=== PATIENT | female | born 1985 | race African-American/Black ===

== ENCOUNTER 2019-09-02 23:47 | Emergency (ER) | payer MEDICAID ==
[~2019-09-02] VITALS: Ht 165.1 cm; Wt 60.8 kg
[2019-09-03 01:57] VITALS: BP 145/70
[2019-09-03] MEDS ORDERED: methylPREDNISolone SOD SUCC 125 MG/2 ML VL IM ONE (02:00)
[2019-09-03] MEDS ORDERED: diphenhdrAMINE HCL 50 MG/1 ML VL IM ONE (02:00)
== END 2019-09-03 02:22 | disposition home or self-care (01) ==
LOC: ER 23:47
DX: L25.9 Unspecified contact dermatitis, unspecified cause (principal); Z77.21 Contact with and (suspected) exposure to potentially hazardous body fluids
CPT/HCPCS: 36415; 86703; 86706; 86803; 96372; 99284; J1200; J2930

== ENCOUNTER 2020-03-28 01:50 | Emergency (ER) | payer MEDICAID ==
[~2020-03-28] VITALS: Ht 167.6 cm; Wt 99.8 kg
[2020-03-28 01:55] VITALS: BP 160/78
== END 2020-03-28 05:29 | disposition left against medical advice (07) ==
LOC: EDBD 01:50 → ER 01:57
DX: R20.0 Anesthesia of skin (principal); Z53.21 Procedure and treatment not carried out due to patient leaving prior to being seen by health care provider